=== PATIENT | female | born 1985 | race Caucasian/White ===

== ENCOUNTER 2018-02-19 08:08 | Day surgery (SDC) | payer BC ==
[2018-02-16 14:08] LABS: BASOPHILS 0.2 % (0-2); EOSINOPHILS 1.1 % (0-7); HEMATOCRIT 39.5 % (36.0-48.0); HEMOGLOBIN 13.8 g/dL (12-16); IMMATURE GRANULOCYTES 0.5 % (0-5); LYMPHOCYTES 28.2 % (15-50); MCH 31.1 pg (26.0-34.0); MCHC 34.9 g/dL (31.0-37.0); MEAN PLATELET VOLUME 11.6 fL (7.4-10.4); MONOCYTES 7.2 % (2-11); NEUTROPHILS 62.8 % (40-80); PLATELET COUNT 230 10x3/uL (130-400); RBC 4.44 10x6/uL (4.00-5.40); RDW 12.8 % (11.5-14.5); WBC 8.1 10x3/uL (4.8-10.8)
[~2018-02-19] VITALS: Ht 172.7 cm; Wt 72.6 kg
[~2018-02-19 08:08] MED LIST: AMBIEN10 MG PO; XANAX0.25 MG PO
[2018-02-19] MEDS ORDERED: NORCO 10-325 TA1 TAB PO (08:46)
[2018-02-19 08:48] VITALS: BP 127/79; Ht 172.7 cm; Wt 72.6 kg
== END 2018-02-19 12:00 | disposition home or self-care (01) ==
LOC: D.OPS 08:08
PROVIDERS: Obstetrics & Gynecology
DX: O02.1 Missed abortion (principal); Z53.09 Procedure and treatment not carried out because of other contraindication; Z01.812 Encounter for preprocedural laboratory examination

== ENCOUNTER → 2019-01-10 11:10 | Outpatient (CLI) | payer BC ==
[2018-02-19 08:48] VITALS: BMI 24.3
[~2019-01-10 11:10] MED LIST changes: +BUSPAR5 MG; +NORCO 10-325 TA1 TAB PO; +PRENAVITE1 TAB PO
== END | disposition home or self-care (01) ==
LOC: D.LDO 11:10
PROVIDERS: ATTEND Obstetrics & Gynecology
DX: O26.899 Other specified pregnancy related conditions, unspecified trimester (principal); R03.0 Elevated blood-pressure reading, without diagnosis of hypertension

== ENCOUNTER 2019-01-17 13:16 | Inpatient (IN) | payer BC ==
[~2019-01-17] VITALS: Ht 172.7 cm; Wt 92.5 kg
[~2019-01-17 13:16] MED LIST changes: -BUSPAR5 MG; -PRENAVITE1 TAB PO
[2019-01-17 14:43] LABS: HEMATOCRIT 37.2 % (36.0-48.0); MCH 30.6 pg (26.0-34.0); MCHC 34.9 g/dL (31.0-37.0); MCV 87.5 fL (80.0-100.0); MEAN PLATELET VOLUME 12.2 fL (7.4-10.4); NEUTROPHILS 72.8 % (40-80); RBC 4.25 10x6/uL (4.00-5.40)
[2019-01-17 14:46] LABS: PLATELET COUNT 144 10x3/uL (130-400)
[2019-01-17 15:04] LABS: APPEARANCE CLEAR (CLEAR); BILIRUBIN NEGATIVE (NEGATIVE); COLOR YELLOW (YELLOW); GLUCOSE NEGATIVE (NEGATIVE); KETONE NEGATIVE (NEGATIVE); NITRITE NEGATIVE (NEGATIVE); PROTEIN NEGATIVE (NEGATIVE); UROBILINOGEN NORMAL (NORMAL)
[2019-01-17 15:08] LABS: ALBUMIN 2.8 g/dL (3.4-5.0); ALKALINE PHOSPHATASE 138 U/L (46-116); ALT (SGPT) 34 U/L (10-68); BILIRUBIN - TOTAL 0.17 mg/dL (0.2-1.3); CALC OSMOLALITY 271 mosm/kg (275-300); CARBON DIOXIDE 22.9 mmol/L (21.0-32.0); CHLORIDE - SERUM 105 mmol/L (98-107); CREATININE - SERUM 0.7 mg/dL (0.6-1.3); GLUCOSE 76 mg/dL (74-106); PROTEIN - SERUM 6.2 g/dL (6.4-8.2); SODIUM 137 mmol/L (136-145); UREA NITROGEN 10 mg/dL (7-18); eGFR NON AFRICAN AMERICAN > 90 mL/min (90-120)
[2019-01-17 15:09] LABS: BILIRUBIN - INDIRECT 0.13 mg/dL (0.00-1.00)
[2019-01-17 15:12] LABS: BILIRUBIN - DIRECT 0.04 mg/dL (0.00-0.30)
[2019-01-17] MEDS ORDERED: BUSPAR5 MG (20:49)
[2019-01-17] MEDS ORDERED: PRENAVITE1 TAB PO (20:50)
[2019-01-17 20:53] VITALS: BP 100/59; Ht 172.7 cm; Wt 92.5 kg
[2019-01-18 07:14] VITALS: BP 136/66
--- NOTE | 2019-01-18 07:14 | NUR ---
RECEIVED PT SITTING UP IN BED. HOLDS INFANT WITH MUCH WARMTH SHOWN. AAO X 3. VSS. HRRR WITHOUT AUDIBLE MURMUR. BBS CLEAR. BS X 4. ABDOMEN SOFT/NON-DISTENDED. FUNDUS FIRM AT U/1. RUBRA LOCHIA MOD AMT. NO CLOTS NOTED. PERINEUM WITH SMALL AMT OF EDEMA NOTED. NEG HOMANS' SIGN. PPP. MILD, NON-PITTING EDEMA NOTED TO ANKLES/FEET. SL SITE CLEAR. PT DENIES PAIN OR NEEDS. SR UPX 2. CALL LIGHT IN REACH.
--- NOTE | 2019-01-18 08:32 | NUR ---
PT TRANSFERED AMBULATORY TO ROOM 1274. INFANT TRANSPORTED VIA [facility] RIB. FRESH ICE WATER SERVED. PT QUESTIONS WHEN SHE'LL GET HER BREAKFAST TRAY. Georgina HOLDENRN FOLLOWS UP WITH DIETARY AND IT'S REPORTED "THEY ARE WORKING ON IT". PT DENIES FURTHER NEEDS. SIG OTHER REMAINS WITH PT.
--- NOTE | 2019-01-18 09:33 | NUR ---
PT C/O PAIN TO PERINEUM OF "2" ON 0-10 PAIN SCALE. MOTRIN 600 MG GIVEN PO ORDERED.
--- NOTE | 2019-01-18 10:30 | NUR ---
PT SITTING UP IN BED. VISITS WITH SO. DENIES C/O OR NEEDS.
--- NOTE | 2019-01-18 12:10 | NUR ---
PT SITTING UP IN BED. CONSUMING REG DIET. TOLERATING WELL. DENIES NEEDS OR C/O.
--- NOTE | 2019-01-18 13:07 | NUR ---
PT LYIING SUPINE IN BED. EYES CLOSED. RESP NON-LABORED. PT NOT DISTURBED TO ALLOW FOR REST. SR UP X 2. CALL LIGHT IN REACH.
--- NOTE | 2019-01-18 14:10 | NUR ---
PT SITTING UP IN BED. VISITS WITH SO. DENIES C/O OR NEEDS.
--- NOTE | 2019-01-18 15:12 | NUR ---
PT LYING SUPINE IN BED. EYES CLOSED. RESP NON-LABORED. PT NOT DISTURBED. SO IN ROOM WITH PT.
[2019-01-18 15:56] VITALS: BP 136/73
--- NOTE | 2019-01-18 16:00 | NUR ---
VSS. PT C/O ABDOMINAL CRAMPING AND PAIN TO PERINEUM OF "4" ON 0-10 PAIN SCALE. MOTRIN 600 MG GIVEN PO ORDERED. PT INSTRUCTED ON MED. VERBALIZES UNDERSTANDING.
--- NOTE | 2019-01-18 17:20 | NUR ---
PT AMBUALATORY WITH SO IN HALLS. BETSY ACTIVITY WELL.
--- NOTE | 2019-01-18 17:39 | NUR ---
PT AMBULATES BACK TO ROOM.
--- NOTE | 2019-01-18 19:18 | NUR ---
VISITORS IN ROOM. PT. HOLDING AND FOB SITTING ON SOFA EATING. PT. STATES SHE HAS OCCASIONAL CRAMPING. STATES IS NOT GOING "REAL WELL". DISCUSSED WITH PT. AND ENCOURAGED HER TO KEEP AN OPEN MIND REGARDING . RELATED THAT IS TIRING AND AT TIMES LABOR INTENSIVE FOR THE FIRST TWO WEEKS BUT WILL BET EASIER THEREAFTER. PT. RELATES THAT SHE TRULY DESIRES TO BREASTFEED. ENCOURAGED USE OF BREAST CREAM AND PT. STATES UNDERSTANDING. INFORMED WOULD BE ABLE TO SPICE MILLER BABY'S EATING CUES AND ESTABLISH A SCHEDULE THAT WORKS FOR HER AND WHEN SHE GETS HOME. DENIES ANY NEEDS AT THIS TIME. INFORMED PT. THAT THIS NURSE WOULD RETURN FOR ASSESSMENT AFTER HER BONDING TIME WITH INFANT. PT. AGREEABLE.
[2019-01-18 20:17] VITALS: BP 137/73
--- NOTE | 2019-01-18 20:17 | NUR ---
VISITORS IN ROOM HOLDING . DENIES ANY PAIN AT THIS TIME. FUNDUS FIRM U/3 AND LOCHIA RUBRA SCANT AT THIS TIME. SALINE LOCK NOTED IN LT WRIST AREA. NO REDNESS NOR EDEMA AT SITE NOTED. BREATH SOUNDS CLEAR AND BOWEL SOUNDS ACTIVE. DENIES ANY NEEDS.
--- NOTE | 2019-01-18 21:10 | NUR ---
WALKING ABOUT IN ROOM. INQUIRED IF SHE DESIRED ANY JUICE OR SOMETHING TO DRINK. PT. REQUESTED APPLE JUICE. SAME SERVED. PT. CHEERFUL. DENIES ANY NEEDS. FOB IN ROOM WITH PT.
--- NOTE | 2019-01-18 22:55 | NUR ---
LYING ON LT SIDE WITH EYES CLOSED. RESPIRATIONS UNLABORED. FOB ASLEEP ON SOFA.
--- NOTE | 2019-01-19 01:00 | NUR ---
PT'S SIG OTHER TO NURSING DESK REQUESTING MOTRIN FORPT. THIS RN TO BEDSIDE FOR PAIN ASSESSMENT. PT REPORTS ABD CRAMPING 07/04. MOTRIN 600MG PO GIVEN. PT REQUESTING SALIN LOCK BE D/C'D. SALINE LOCK D/C'D INTACT. SITE WNL. BANDAID PLACED OVER SITE. TRASH REMOVED FROM ROOM. PT DENIES FURTHER NEEDS AT THIS TIME. REPORTS SHE IS GOING TO NAP.
--- NOTE | 2019-01-19 02:00 | NUR ---
ROUNDS MADE. PT LYING IN LOW SCRUGGS'S W/EYES CLOSED. RESP EVEN AND UNLABORED. PT LEFT UNDISTURBED TO ALLOW FOR REST.
--- NOTE | 2019-01-19 04:00 | NUR ---
PT RINGS CALL LIGHT REQUESTING SOMETHING FOR A HEADACHE. TYLENOL 650MG PO GIVEN. SIG OTHER GETS PT FRESH ICE WATER TO DRINK. PT DENIES FURTHER NEEDS AT THIS TIME.
--- NOTE | 2019-01-19 06:00 | NUR ---
ROUNDS MADE. PT SITTING UP IN BED. REPORTS HEADACHE REMAINS, BUT SHE FEELS IT'S BECAUSE SHE HASN'T HAD MUCH SLEEP. FRESH ICE WATER SERVED. PT DENIES FURTHER NEEDS AT THIS TIME.
--- NOTE | 2019-01-19 07:08 | NUR ---
DR TYLER ROUNDS, VERBAL ORDER RECEIVED FOR CBC NOW. STATES POSSIBLE DISCHARGE BASED ON LAB RESULTS.
--- NOTE | 2019-01-19 07:40 | NUR ---
LAB AT BEDSIDE FOR BLOOD DRAW.
--- NOTE | 2019-01-19 07:45 | NUR ---
AM ASSESSMENT COMPLETED CHARTED ON FLOWSHEET, RATES PAIN AT 2/10 AND DENIES NEEDS FOR MEDS AT THIS TIME. FUNDUS FIRM AT U/U WITH SCANT BLEEDING TO DORCAS PAD, SHE DENIES CLOTS WITH VOIDS. INFANT IN ROOM FOR FEEDING, DORCAS PAD/MESH BRIEFS PLACED IN BATHROOM PER PT REQEST. SIDE RAILS UP X 2 WITH PHONE AND CALL LIGHT IN REACH.
[2019-01-19 07:49] LABS: BASOPHILS 0.2 % (0-2); EOSINOPHILS 1.6 % (0-7); HEMATOCRIT 29.5 % (36.0-48.0); HEMOGLOBIN 10.3 g/dL (12-16); IMMATURE GRANULOCYTES 1.1 % (0-5); LYMPHOCYTES 22.7 % (15-50); MCH 30.6 pg (26.0-34.0); MCHC 34.9 g/dL (31.0-37.0); MCV 87.5 fL (80.0-100.0); MEAN PLATELET VOLUME 12.3 fL (7.4-10.4); MONOCYTES 6.3 % (2-11); NEUTROPHILS 68.1 % (40-80); PLATELET COUNT 142 10x3/uL (130-400); RBC 3.37 10x6/uL (4.00-5.40); RDW 14.8 % (11.5-14.5); WBC 13.9 10x3/uL (4.8-10.8)
--- NOTE | 2019-01-19 09:00 | NUR ---
Arlet Etienne 01/19/[birth year] S: Patient states she has been latching for about 5 or so minutes then providing formula because will fall asleep. States she would like to breastfeed. Verbally agrees to ask for help with next feeding with latching. Thanked CLC for tips. O: Patient awake lying in bed, in crib sleeping next to the bed, FOB eating breakfast. Praised for . Informed patient takes practice and patience in the beginning. Explained breastmilk composition, supply and demand, positions, how to verify infant is latched correctly, infant feeding cues, benefits of skin to skin to help promote baby led feeding, and encouraged to ask for help as needed with latching . Explained normal feeding patterns for a breastfed . Give some time needs longer then 5 minutes to help with starting a feeding and to nurse. Some will latch immediately as some infant need a longer time frame. Showed how to hold infant for feeding with laid back . Encouraged to ask for help as needed with nursing staff. Provided work number and email. Please call or email as needed for help with . A: Patient unsure how to breastfeed , needs help. P: Patient will reach out to hospital nursing staff for infant next feeding to get help with latching infant. Cam Jhaveri, TAMAR
--- NOTE | 2019-01-19 09:20 | NUR ---
SIG OTHER OUT TO UNIT DESK WITH QUESTIONS ABOUT DISCHARGE, UNDERSTANDS THAT AT THIS TIME NO DISCHARGE CHARGE ORDER HAS BEEN RECEIVED FOR . NO OTHER QUESTIONS OR NEEDS AT THIS TIME.
--- NOTE | 2019-01-19 12:12 | NUR ---
DR TYLER ON UNIT WITH CBC FROM THIS AM REVIEWED. ORDERS RECEIVED TO REPEAT CBC AND CALL HER WITH RESULTS.
[2019-01-19 12:59] LABS: BASOPHILS 0.3 % (0-2); EOSINOPHILS 1.4 % (0-7); HEMATOCRIT 30.2 % (36.0-48.0); HEMOGLOBIN 10.4 g/dL (12-16); IMMATURE GRANULOCYTES 1.8 % (0-5); LYMPHOCYTES 17.9 % (15-50); MCH 30.4 pg (26.0-34.0); MCHC 34.4 g/dL (31.0-37.0); MCV 88.3 fL (80.0-100.0); MEAN PLATELET VOLUME 12.6 fL (7.4-10.4); MONOCYTES 4.1 % (2-11); NEUTROPHILS 74.5 % (40-80); PLATELET COUNT 154 10x3/uL (130-400); RBC 3.42 10x6/uL (4.00-5.40); RDW 14.8 % (11.5-14.5); WBC 12.8 10x3/uL (4.8-10.8)
--- NOTE | 2019-01-19 13:13 | NUR ---
CBC RESULTS CALLED TO DR TYLER, DISCHARGE ORDER RECEIVED.
--- NOTE | 2019-01-19 14:00 | NUR ---
Verbal and written discharge orders gone over with pt. States her understanding to all info given and how to control pain when home. Denies pain or discomfort at this time. Will call when she has finished feeding and gotten herself dressed.
--- NOTE | 2019-01-19 14:45 | NUR ---
Pt calls out that she is ready, verified that was secured in to carrier. Pt denies wheelchair, amb to front. Home with spouse and by private car.
== END 2019-01-19 14:45 | disposition home or self-care (01) | DRG 768 ==
LOC: D.LDO 13:16 → D.LD 18:41 → D.WS 01-18 11:45 → D.LD 01-18 12:14
PROVIDERS: Obstetrics & Gynecology; ADMIT Student in an Organized Health Care Education/Training Program; ATTEND Student in an Organized Health Care Education/Training Program
PROC: 10E0XZZ Delivery of Products of Conception, External Approach (ICD-10-PCS; principal; 2019-01-18)
PROC: 0DQR0ZZ Repair Anal Sphincter, Open Approach (ICD-10-PCS; 2019-01-18)
DX: O13.4 Gestational [pregnancy-induced] hypertension without significant proteinuria, complicating childbirth (principal); Z37.0 Single live birth; O99.12 Other diseases of the blood and blood-forming organs and certain disorders involving the immune mechanism complicating childbirth; Z3A.38 38 weeks gestation of pregnancy; O70.20 Third degree perineal laceration during delivery, unspecified